=== PATIENT | female | born 1990 | race Caucasian/White ===

== ENCOUNTER → 2022-09-06 11:28 | Outpatient (CLI) | payer OTHER, SELFPAY ==
--- NOTE | ~2022-09-06 | XR_ITS ---
EXAMINATION: XR fl inj knee LT for MR/CT DATE: 09/06/2022 12:52 INDICATION: Left knee pain TECHNIQUE: A time-out was performed to verify the patient's name, date of , and procedure to b e performed. The procedure including the risks, benefits, and alternatives was discussed with the pat ient. Risks discussed included bleeding and infection. The patient understood the risks and agreed to proceed. The skin overlying the lateral side of the left knee joint was prepped and draped in usual sterile fashion. Anesthetic was administered with 1% lidocaine subcutaneously. A 22 G needle was a dvanced under fluoroscopic guidance into the joint. Injection of 0.3 mL of Omnipaque 350 confirmed i ntra-articular position of the needle. Subsequently, injectate consisting of 40 mL of 5:3:2 mixture of sterile saline:Omnipaque 240:1% lidocaine mixed 200:1 with 529 mg/mL Multihance gadolinium contras t was injected with intra-articular administration confirmed by intermittent fluoroscopy. The needle was removed and the entry site was cleaned and dressed. There were no immediate complications. Fluor oscopy exposure time was 0.2 minutes. The total number of images was 12. Total DAP was 0.151 Gycm^2 FINDINGS: Real-time fluoroscopy demonstrates the needle in the left knee joint. IMPRESSION: 1. Successful left knee joint injection of dilute gadolinium contrast mixture for subsequent MRI arth rogram which will be dictated separately. Reviewed, dictated and finalized at location A. IMPRESSION: 1. Successful left knee joint injection of dilute gadolinium contrast mixture f or subsequent MRI arthrogram which will be dictated separately.
--- NOTE | ~2022-09-06 | MR_ITS ---
EXAMINATION: MR knee LT w con DATE: 09/06/2022 13:10 INDICATION: Left knee pain TECHNIQUE: Magnetic resonance imaging (MRI) of the left knee was performed with intra-articular contr ast but without intravenous contrast. Details of the contrast mixture and joint injection have been d ictated separately. Sequences included axial and coronal PD-weighted FSE, axial, sagittal and coronal T1-weighted FS FSE, sagittal T2-weighted FS FSE and sagittal PD-weighted FSE. COMPARISON: None. FINDINGS: Medial compartment: Medial meniscus is normal. Articular cartilage is normal. Lateral compartment: Lateral meniscus is normal. Articular cartilage is normal. Patellofemoral compartment: Partial-thickness chondral fissuring involving up to 50% the cartilage thickness at the central aspec t of the medial and of the lateral patellar facets. Full/near full-thickness sagittal oriented chondr al fissure measuring 4 mm craniocaudally at the central aspect of the trochlear groove with prominent underlying subarticular edema-like signal change. Ligaments and tendons: Anterior and posterior cruciate ligaments are normal. The medial collateral ligament and fibular nicki ateral ligament complex are normal. The extensor mechanism is normal with a couple thin bands of justin c angle artifact extending across the mid and distal patellar tendon. The visualized medial and later al hamstring tendons as well as the iliotibial band are normal. Osseous/other: Aside from the subarticular marrow edema at the trochlea there is normal marrow signal. No fracture o r pathologic marrow replacing process. IMPRESSION: 1. 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 2. Normal stabilizing ligaments and normal menisci and cartilage in the medial and lateral compartmen ts. Reviewed, dictated and finalized at location A. IMPRESSION: 1. 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 2. Normal stabilizing ligaments and normal menisci and cartilage in the medial and lateral compartments.
== END ==
PROVIDERS: PCP Physician Assistant; Visit Provider Orthopaedic Surgery
DX: M17.12 Unilateral primary osteoarthritis, left knee (principal)
CPT/HCPCS: 20610; 73722; 77002; A9577; Q9967

== ENCOUNTER 2024-05-06 12:47 | Outpatient (CLI) | payer OTHER, SELFPAY ==
--- NOTE | ~2024-05-06 | US_ITS ---
EXAMINATION TYPE: US breast LT limited COMPARISON: NONE REASON FOR STUDY: AXILLARY TAIL TECHNIQUE: Targeted sonographic evaluation of the left axillary tail was performed. INTERPRETATION: No significant mass lesion identified. No fluid collection or cyst seen. No significant abnormalities seen. IMPRESSION: Negative BI-RADS CATEGORY: BI-RADS 1: Normal Reviewed, dictated and finalized at [facility]. TOR CRANE ENGINEER
== END 2024-05-06 12:48 | disposition home or self-care (01) ==
PROVIDERS: PCP Physician Assistant; Visit Provider Obstetrics & Gynecology
DX: N63.32 Unspecified lump in axillary tail of the left breast (principal)
CPT/HCPCS: 76642

== ENCOUNTER 2024-09-19 07:53 | Outpatient (CLI) | payer OTHER, SELFPAY ==
--- NOTE | ~2024-09-19 | MMUS_ITS ---
EXAMINATION: US breast LT complete, MM diagnostic peter LT w song HISTORY: Palpable lump left upper outer breast TECHNIQUE: Additional 3-D tomosynthesis images of the left breast were performed and synthetic 2-D im ages were generated. CAD analysis was submitted and interpreted. High resolution complete left breast ultrasound was performed. COMPARISON: Ultrasound dated 05/06/2024 BREAST PARENCHYMAL COMPOSITION: Dense: The breasts are extremely dense, which lowers the sensitivity of mammography. FINDINGS: MAMMOGRAPHIC FINDINGS: There are no suspicious masses, calcifications or architectural distortion in the left breast to sugg est malignancy. There are benign appearing lymph nodes in the left axilla. ULTRASOUND: Complete US of all 4 quadrants of the left breast/s and retroareolar region was reviewed. At 6:00, 6 cm from the nipple there is a 3 mm cyst. No suspicious masses in the left breast to suggest malignanc y. IMPRESSION: 1. No evidence for malignancy in the left breast. 2. Routine yearly screening mammogram and regular clinical breast examination are recommended. BI-RADS Category 2: Benign finding(s). Reviewed, dictated and finalized at location A. IMPRESSION: 1. No evidence for malignancy in the left breast. 2. Routine yearly screening mammogram and regular clinical breast examination a re recommended. BI-RADS Category 2: Benign finding(s).
== END 2024-09-19 07:54 | disposition home or self-care (01) ==
PROVIDERS: PCP Physician Assistant; Visit Provider Student in an Organized Health Care Education/Training Program
DX: N63.21 Unspecified lump in the left breast, upper outer quadrant (principal)
CPT/HCPCS: 76641; 77061; 77065; G0279

== ENCOUNTER 2024-12-24 17:31 | Emergency (ER) | payer OTHER, SELFPAY ==
--- NOTE | ~2024-12-24 | XR_ITS ---
XR knee LT 3V Ordering provider: Kike Paredes APRN History: . LT knee pain/swelling after exercising yesterday . Comparison: None. FINDINGS: BONES: No acute fracture or dislocation. JOINT SPACES: Normal. SOFT TISSUES: Normal. IMPRESSION: No acute osseous abnormality left knee. Reviewed, dictated and finalized at location A.
--- OUTSIDE RECORDS SUMMARY | 2024-12-24 17:34 | XMS_ITS | Clinical Summary ---
Author Organization [facility] Address [address] [place] [address] Care Team Providers Care Golf Sales Associate Name Role Phone Carl Márquez DO Primary Care Provider [phone] Source Comments [facility],non-owned Affiliates and Associated Physician Practices is amultiple site organization consisting of ambulatory clinics and hospital sitesin [place], [place], [place] and [place]. This disclosure is being madepursuant to the Care Everywhere program and may not contain all information available regarding this patient. 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 Gender Identity Not on file Sexual Orientation Not on file Plan of Treatment Health Maintenance Due Date Last Done Comments HIV SCREENING 2006 HEPATITIS C SCREENING 04/26/2009 HEPATITIS B VACCINE (1 of 3 - 19+ 3-dose series) 2010 COVID-19 VACCINE ( - 2023-2 5 season) 2024 DEPRESSION SCREENING 06/18/2024 INFLUENZA VACCINE (Season Ended) 2025 DTAP/TDAP/TD VACCINES (2 - T d or Tdap) 07/11/2026 07/11/2016 ZOSTER VACCINE (1 of 2) 2041 HIB VACCINE Aged Out No longer eligi ble based on patient's age to complete this topic HPV VACCINE Aged Out No longer eligi ble based on patient's age to complete this topic MENINGOCOCCAL (Group B) VACC INE SHARED DECISION-MAKING Aged Out No longer eligibl e based on patient's age to complete this topic MENINGOCOCCAL GROUPS A/C/Y/W VACCINE Aged Out No longer eligible b ased on patient's age to complete this topic PNEUMOCOCCAL VACCINE Aged Out No long er eligible based on patient's age to complete this topic Insurance [facility] Address: [address] [address] [place] [address] Care Teams Golf Sales Associate Relationship Specialty Start Date End Date Carl Márquez DO PCP - General Internal Medicine 07/11/16
--- OUTSIDE RECORDS SUMMARY | 2024-12-24 17:34 | XMS_ITS | Clinical Summary ---
Author Organization [facility] Address [address] [place] [id number] Care Team Providers Care Profiling Machine Set Up Operator Name Role Phone Angelita Byrnes Primary Care Provider Allergies No known active allergies Medications ondansetron 4 MG disintegrating tablet Take 1 tablet (4 mg total) by mouth every 8 (eight) hours as needed for Nausea. 20 tablet Active Social History Tobacco Use Types Packs/Day Years Used Date Smoking Tobacco: Never Smokeless Tobacco: Never Alcohol Use Standard Drinks/Week Comments Never 0 (1 standard drink = 0.6 oz pur e alcohol) Comments No Sex and Gender Information Value Date Recorded Sex Assigned at Not on file Legal Sex Female 7:36 PM CDT Gender Identity Not on file Sexual Orientation Not on file Last Filed Vital Signs Vital Sign Reading Time Taken Comments Blood Pressure 114/72 11/15/2021 6:59 PM CDT Pulse 74 11/15/2021 6:59 PM CDT Temperature 36.4 C (97.6 F) 11/15/2021 3:34 PM CDT Respiratory Rate 16 11/15/2021 6:59 PM CDT Oxygen Saturation 100% 11/15/2021 6:59 PM CDT Inhaled Oxygen Concentration - - Weight 68 kg (150 lb) 11/15/2021 3:34 PM CDT Height 172.7 cm (5' 8) 11/15/2021 3:34 PM CDT Body Mass Index 22.81 11/15/2021 3:34 PM CDT Plan of Treatment Health Maintenance Due Date Last Done Comments Cervical Cancer Screening Pa p Smear (Age 30 to 64) Every 3 Years 1991 Annual Physical 1994 Hepatitis C 2009 Hepatitis B Vaccines (1 of 3 - 19+ 3-dose series) 2010 Cervical Cancer Screening Mushtaq yi with HPV Testing (Age 30 to 64) Every 5 Years 2021 Cervical Cancer Screening wi th HPV 2021 COVID-19 Vaccine (3 - 2023-2 5 season) 2024 02/02/2021, 01/12/2021 DTaP, Tdap and Td Vaccines ( 2 - Td or Tdap) 07/11/2026 07/11/2016 HPV Vaccines Aged Out No longer eligi ble based on patient's age to complete this topic Meningococcal B Vaccine Aged Out No l onger eligible based on patient's age to complete this topic Meningococcal Vaccine Aged Out No rafal mattie eligible based on patient's age to complete this topic Pneumococcal Vaccine: Pediatrics (0 to 5 Years) and At-Risk Patients (6 to 49 Years) Aged Out No longer eligible b ased on patient's age to complete this topic RSV Immunizations Under 20 Months Aged Out No longer eligible b ased on patient's age to complete this topic Insurance Care Teams Profiling Machine Set Up Operator Relationship Specialty Start Date End Date Angelita Byrnes PA PCP - General PHYSICIAN BIOSTATISTICS DIRECTOR 11/15/21
--- OUTSIDE RECORDS SUMMARY | 2024-12-24 17:34 | XMS_ITS | Patient Health Record ---
Author Organization [facility] Address [address] [place], [place] [id number] Care Team Providers Care Silverware Buffer Name Role Phone JASSI BETH Unavailable [phone] Angelita Byrnes Unavailable Unavailable Reason For Referral No Information Plan Of Treatment No Information Insurance Providers Payer Name Payer Address Payer Phone Subscriber Number Group Number Insured Name Patient Relationship to Insured Coverage Start Date Coverage End Date All [employer] [address] [address] [place], [place] [id number] ALFREDITO ABDI Spouse - patient is the spouse of the insured [employer] [address] [address] [place] [address] [id number] ALFREDITO ABDI Spouse - patient is the spouse of the insured
--- OUTSIDE RECORDS SUMMARY | 2024-12-24 17:34 | XMS_ITS | Data Portability ---
Author Organization [facility] [place] [facility] Address [address] [place] [address] Care Team Providers Care Nurse Gynecology Name Role Phone TERESO FIERRO Primary Care Provider Unavailab le Assessment Encounter Date Assessment Date Assessment LastModified by Organization Details LastModified Time 05/20/2024 05/20/2024 discussed sometimes has axilla discomfort left side. gyne ordered u/s axilla tail that was normal. discussed possible CT axilla if pain returns. [email or web address] Not available 05/20/2024 14:18:54 Plan of Treatment Reminders Order Date Submit Date Provider Last Modified By Organization Details Last Modified Time Details Appointments None recorded. Lab influenza virus A + B + SARS-CoV-2 (COVID19) Ag panel, rapid IA, upper respirator y specimen 2024 025 [email or web address] In-Office Order, Internal Use Only DO Not Attach Compendium DO Not Attach Compendium, Do Not Delete/merge, [id number] 13:52:27 rapid strep group A, throat 2024 025 [email or web address] In-Office Order, Internal Use Only DO Not Attach Compendium DO Not Attach Compendium, Do Not Delete/merge, [id number] 13:58:29 Referral None recorded. Procedures None recorded. Surgeries None recorded. Imaging None recorded. Medication Orders cefdinir 300 mg capsule 2024 025 [facility] #[id number], [address] [place] [address], [id number], 5 13:53:02 prednisone 50 mg tablet 2024 025 [facility] #68370, [address] [place] [address], [id number], 5 13:53:01 sertraline 25 mg tablet 2023 024 [facility] #18201, [address] [place] [address], [id number], 4 14:20:30 bupropion HCl XL 300 mg 24 hr tablet, extended release 2023 024 [email or web address] #85321, [address] [place] [address], [id number], 5 13:07:07 Medrol (Brandan) 4 mg tablets in a dose pack 2023 024 [facility] #65439, [address] [place] [address], [id number], 4 21:17:02 codeine 10 mg-guaifen esin 100 mg/5 mL oral liquid 2023 024 [facility] #27260, [address] [place] [address], [id number], 4 21:17:00 amoxicilli n 875 mg-potassi um clavulanat e 125 mg tablet 2023 024 [facility] #27790, [address] [place] [address], [id number], 4 21:17:00 Patient TargetsNo targets recorded. Patient InstructionsNo instructions recorded. Reason for Referral None Reported. Results Created Date Observation Date Name Description Value Unit Range Abnormal Flag Note LastModifiedBy Organization Detail LastModifiedTime 02/19/20 24 02/20/2024 LIPID PANEL W/ CHOL/ HDL RATIO cholesterol, total 195 mg/dL 100-19 9 Not Available [facility] ([facility]) [address] [facility], [place], [address], 02/20/2024 04:36:17 02/19/20 24 02/20/2024 LIPID PANEL W/ CHOL/ HDL RATIO triglyceride s 73 mg/dL 0-149 Not Available [facility] ([facility]) [address] [facility], [place], [address], 02/20/2024 04:36:17 02/19/20 24 02/20/2024 LIPID PANEL W/ CHOL/ HDL RATIO HDL cholesterol 87 mg/dL >39 Not Available [facility] ([facility]) [address] [facility], [place], [address], 02/20/2024 04:36:17 02/19/20 24 02/20/2024 LIPID PANEL W/ CHOL/ HDL RATIO VLDL cholesterol lisa 13 mg/dL 5-40 Not Available [facility] ([facility]) [address] [facility], [place], [address], 02/20/2024 04:36:17 02/19/20 24 02/20/2024 LIPID PANEL W/ CHOL/ HDL RATIO LDL chol calc (rust) 95 mg/dL 0-99 Not Available [facility] ([facility]) [address] [facility], [place], [address], 02/20/2024 04:36:17 02/19/20 24 02/20/2024 LIPID PANEL W/ CHOL/ HDL RATIO T. chol/HDL ratio 2.2 ratio 0.0-4. 4 T. Chol/ HDL Ratio Men Women 1/2 Avg.R isk 3.4 3.3 Avg.R isk 5.0 4.4 2X Avg.R isk 9.6 7.1 3X Avg.R isk 23.4 11.0 Not Available [facility] ([facility]) [address] [facility], [place], [address], 02/20/2024 04:36:17 02/19/20 24 02/20/2024 TSH+F REE T4 TSH 2.110 uIU/m L 0.450- 4.500 Not Available [facility] ([facility]) [address] [facility] [place], [address], 02/20/2024 04:36:17 02/19/20 24 02/20/2024 TSH+F REE T4 T4,free(dire ct) 1.19 NG/dL 0.82-1 .77 Not Available [facility] ([facility]) [address] [facility] [place], [address], 02/20/2024 04:36:17 02/19/20 24 02/20/2024 COMP. METAB OLIC PANEL (14) glucose 87 mg/dL 70-99 Not Available [facility] ([facility]) [address] [place], [address], 02/20/2024 04:36:18 02/19/20 24 02/20/2024 COMP. METAB OLIC PANEL (14) BUN 9 mg/dL 6-20 Not Available [facility] ([facility]) [address] [place], [address], 02/20/2024 04:36:18 02/19/20 24 02/20/2024 COMP. METAB OLIC PANEL (14) creatinine 0.82 mg/dL 0.57-1 .00 Not Available [facility] ([facility]) [address] [facility] [place], [address], 02/20/2024 04:36:18 02/19/20 24 02/20/2024 COMP. METAB OLIC PANEL (14) eGFR 97 mL/mi n/1.7 3 >59 Not Available [facility] ([facility]) [address] [place], [address], 02/20/2024 04:36:18 02/19/20 24 02/20/2024 COMP. METAB OLIC PANEL (14) BUN/creatini ne ratio 11 9-23 Not Available [facility] ([facility]) [address] [facility] [place], [address], 02/20/2024 04:36:18 02/19/20 24 02/20/2024 COMP. METAB OLIC PANEL (14) sodium 138 mmol/ L 134-14 4 Not Available [facility] ([facility]) [address] [facility] [place], [address], 02/20/2024 04:36:18 02/19/20 24 02/20/2024 COMP. METAB OLIC PANEL (14) potassium 4.4 mmol/ L 3.5-5. 2 Not Available [facility] ([facility]) [address] [facility], [place], [address], 02/20/2024 04:36:18 02/19/20 24 02/20/2024 COMP. METAB OLIC PANEL (14) chloride 103 mmol/ L 96-106 Not Available [facility] ([facility]) [address] [place], [address], 02/20/2024 04:36:18 02/19/20 24 02/20/2024 COMP. METAB OLIC PANEL (14) carbon dioxide, total 23 mmol/ L 20-29 Not Available [facility] ([facility]) [address] [place], [address], 02/20/2024 04:36:18 02/19/20 24 02/20/2024 COMP. METAB OLIC PANEL (14) calcium 9.2 mg/dL 8.7-10 .2 Not Available [facility] ([facility]) [address] [place], [address], 02/20/2024 04:36:18 02/19/20 24 02/20/2024 COMP. METAB OLIC PANEL (14) protein, total 6.9 g/dL 6.0-8. 5 Not Available [facility] ([facility]) [address] [place], [address], 02/20/2024 04:36:18 02/19/20 24 02/20/2024 COMP. METAB OLIC PANEL (14) albumin 4.5 g/dL 3.9-4. 9 Not Available [facility] ([facility]) [address] [place], [address], 02/20/2024 04:36:18 02/19/20 24 02/20/2024 COMP. METAB OLIC PANEL (14) globulin, total 2.4 g/dL 1.5-4. 5 Not Available [facility] ([facility]) [address] [place], [address], 02/20/2024 04:36:18 02/19/20 24 02/20/2024 COMP. METAB OLIC PANEL (14) bilirubin, total 0.3 mg/dL 0.0-1. 2 Not Available [facility] ([facility]) [address] [place], [address], 02/20/2024 04:36:18 02/19/20 24 02/20/2024 COMP. METAB OLIC PANEL (14) alkaline phosphatase 68 IU/L 44-121 Not Available [facility] ([facility]) [address] [place], [address], 02/20/2024 04:36:18 02/19/20 24 02/20/2024 COMP. METAB OLIC PANEL (14) AST (SGOT) 17 IU/L 0-40 Not Available [facility] ([facility]) [address] [place], [address], 02/20/2024 04:36:18 02/19/20 24 02/20/2024 COMP. METAB OLIC PANEL (14) ALT (SGPT) 16 IU/L 0-32 Not Available [facility] ([facility]) [address] [facility], [place], [address], 02/20/2024 04:36:18 02/19/2002/20/2024 VITAM IN B12 AND FOLAT E vitamin B12 482 pg/mL 232-12 45 Not Available [facility] ([facility]) [address] [facility], [place], [address], 02/20/2024 04:36:19 02/19/2002/20/2024 VITAM IN B12 AND FOLAT E folate (folic acid), serum 11.9 NG/mL >3.0 A serum folat e aleida ntrat ion of less than 3.1 ng/mL is consi dered to repre sent clini lisa defic iency . Not Available [facility] ([facility]) [address] [facility], [place], [address], 02/20/2024 04:36:19 02/19/2002/20/2024 HEMOG LOBIN A1C hemoglobin A1C 5.4 % 4.8-5. 6 Predi abete s: 5.7 - 6.4 Diabe gabby: >6.4 Glyce hannah contr ol for adult s with diabe gabby: <7.0 Not Available [facility] ([facility]) [address] [facility], [place], [address], 02/20/2024 04:36:19 02/19/2002/19/2024 CBC WITH DIFFE RENTI AL/PL ATELE T WBC 5.6 x10e3 /uL 3.4-10 .8 Not Available [facility] ([facility]) [address] [facility], [place], [address], 02/20/2024 04:36:20 02/19/2002/19/2024 CBC WITH DIFFE RENTI AL/PL ATELE T RBC 4.72 x10e6 /uL 3.77-5 .28 Not Available [facility] ([facility]) [address] [place], [address], 02/20/2024 04:36:20 02/19/20 24 02/19/2024 CBC WITH DIFFE RENTI AL/PL ATELE T hemoglobin 13.7 g/dL 11.1-1 5.9 Not Available [facility] ([facility]) [address] [facility], [place], [address], 02/20/2024 04:36:20 02/19/20 24 02/19/2024 CBC WITH DIFFE RENTI AL/PL ATELE T hematocrit 42.1 % 34.0-4 6.6 Not Available [facility] ([facility]) [address] [facility], [place], [address], 02/20/2024 04:36:20 02/19/20 24 02/19/2024 CBC WITH DIFFE RENTI AL/PL ATELE T MCV 89 fL 79-97 Not Available [facility] ([facility]) [address] [facility], [place], [address], 02/20/2024 04:36:20 02/19/20 24 02/19/2024 CBC WITH DIFFE RENTI AL/PL ATELE T MCH 29.0 pg 26.6-3 3.0 Not Available [facility] ([facility]) [address] [place], [address], 02/20/2024 04:36:20 02/19/20 24 02/19/2024 CBC WITH DIFFE RENTI AL/PL ATELE T MCHC 32.5 g/dL 31.5-3 5.7 Not Available [facility] ([facility]) [address] [place], [address], 02/20/2024 04:36:20 02/19/20 24 02/19/2024 CBC WITH DIFFE RENTI AL/PL ATELE T RDW 11.9 % 11.7-1 5.4 Not Available [facility] ([facility]) [address] [place], [address], 02/20/2024 04:36:20 02/19/20 24 02/19/2024 CBC WITH DIFFE RENTI AL/PL ATELE T platelets 335 x10e3 /uL 150-45 0 Not Available [facility] ([facility]) [address] [facility], [place], [address], 02/20/2024 04:36:20 02/19/20 24 02/19/2024 CBC WITH DIFFE RENTI AL/PL ATELE T neutrophils 45 % notest ab. Not Available [facility] ([facility]) [address] [facility], [place], [address], 02/20/2024 04:36:20 02/19/20 24 02/19/2024 CBC WITH DIFFE RENTI AL/PL ATELE T lymphs 43 % notest ab. Not Available [facility] ([facility]) [address] [facility], [place], [address], 02/20/2024 04:36:20 02/19/20 24 02/19/2024 CBC WITH DIFFE RENTI AL/PL ATELE T monocytes 7 % notest ab. Not Available [facility] ([facility]) [address] [facility], [place], [address], 02/20/2024 04:36:20 02/19/20 24 02/19/2024 CBC WITH DIFFE RENTI AL/PL ATELE T eos 4 % notest ab. Not Available [facility] ([facility]) [address] [facility], [place], [address], 02/20/2024 04:36:20 02/19/20 24 02/19/2024 CBC WITH DIFFE RENTI AL/PL ATELE T basos 1 % notest ab. Not Available [facility] ([facility]) [address] [facility], [place], [address], 02/20/2024 04:36:20 02/19/20 24 02/19/2024 CBC WITH DIFFE RENTI AL/PL ATELE T neutrophils (absolute) 2.5 x10e3 /uL 1.4-7. 0 Not Available [facility] ([facility]) [address] [facility], [place], [address], 02/20/2024 04:36:20 02/19/20 24 02/19/2024 CBC WITH DIFFE RENTI AL/PL ATELE T lymphs (absolute) 2.4 x10e3 /uL 0.7-3. 1 Not Available [facility] ([facility]) [address] [facility], [place], [address], 02/20/2024 04:36:20 02/19/20 24 02/19/2024 CBC WITH DIFFE RENTI AL/PL ATELE T monocytes(ab solute) 0.4 x10e3 /uL 0.1-0. 9 Not Available [facility] ([facility]) [address] [facility], [place], [address], 02/20/2024 04:36:20 02/19/20 24 02/19/2024 CBC WITH DIFFE RENTI AL/PL ATELE T eos (absolute) 0.2 x10e3 /uL 0.0-0. 4 Not Available [facility] ([facility]) [address] [facility], [place], [address], 02/20/2024 04:36:20 02/19/20 24 02/19/2024 CBC WITH DIFFE RENTI AL/PL ATELE T baso (absolute) 0.1 x10e3 /uL 0.0-0. 2 Not Available [facility] ([facility]) [address] [place], [address], 02/20/2024 04:36:20 02/19/20 24 02/19/2024 CBC WITH DIFFE RENTI AL/PL ATELE T immature granulocytes 0 % notest ab. Not Available [facility] ([facility]) [address] [place], [address], 02/20/2024 04:36:20 02/19/20 24 02/19/2024 CBC WITH DIFFE RENTI AL/PL ATELE T immature grans (abs) 0.0 x10e3 /uL 0.0-0. 1 Not Available [facility] ([facility]) [address] [facility], [place], [address], 02/20/2024 04:36:20 08/19/19 25 08/18/2024 rapid strep group A, throa t Strep negati ve Not Available In-Office Order Internal Use Only DO Not Attach Compendium DO Not Attach Compendium, Do Not Delete/merge, 08/18/2024 13:58:24 08/19/19 25 08/18/2024 influ dwayne virus A + B + SARS- CoV-2 (COVI D19) Ag panel , rapid IA, upper respi rator y speci men Flu A positi ve Not Available In-Office Order Internal Use Only DO Not Attach Compendium DO Not Attach Compendium, Do Not Delete/merge, 08/18/2024 13:52:11 08/19/19 25 08/18/2024 influ dwayne virus A + B + SARS- CoV-2 (COVI D19) Ag panel , rapid IA, upper respi rator y speci men Flu B negati ve Not Available In-Office Order Internal Use Only DO Not Attach Compendium DO Not Attach Compendium, Do Not Delete/merge, 08/18/2024 13:52:11 08/19/19 25 08/18/2024 influ dwayne virus A + B + SARS- CoV-2 (COVI D19) Ag panel , rapid IA, upper respi rator y speci men Rapid SARS CoV 2 Ag, QL IA, respiratory specimen negati ve Not Available In-Office Order Internal Use Only DO Not Attach Compendium DO Not Attach Compendium, Do Not Delete/merge, 08/18/2024 13:52:11 05/06/20 24 05/06/2024 robel BRUNO No observ ation record ed. [email or web address] [facility] [address], [place], [address], 05/20/2024 14:08:17 09/20/19 25 09/19/2024 MAMMO , diagn ostic , digit al, unila teral No observ ation record ed. [email or web address] [facility] [address], [place], [address], 09/19/2024 13:32:17 Result Notes None recorded. Problems Name Problem SNOMED Code Status Onset Date Resolution Date Notes Provider Name and Address Organization Details Recorded Time Generalized anxiety disorder 43060120 Active 2023 ALICE Hopkins Attn: Lolita hogan,[address] [place], [address], [facility] 4 14:04:52 Mild depression 439596618 Active 2023 ALICE Hopkins Attn: Lolita hogan,[address] [place], [address], [facility] 4 14:04:53 Long-term drug therapy Active 2023 ALICE Hopkins Attn: Lolita g,[address] [place], [address], [facility] 4 14:04:54 Body mass index 20-24 - normal 827920868 Active 2023 ALICE Hopkins Attn: Lolita g,[address] [place], [address], [facility] 4 19:21:48 Problem Notes None recorded. Medical Equipment None Reported. Allergies No known drug allergies Medications Name Sig Start Date Stop Date Status Note LastModified by Organization Details LastModified Time cyclobenzap rine 10 mg tablet TAKE 1 TABLET BY MOUTH THREE TIMES DAILY NEEDED 09/19 completed Not Available Not Available Not Available sulfamethox azole 800 mg-trimetho prim 160 mg tablet TAKE 1 TABLET BY MOUTH EVERY 12 HOURS 09/19 completed Not Available Not Available Not Available prednisone 50 mg tablet TAKE 1 TABLET BY MOUTH EVERY DAY FOR 5 DAYS active Not Available Not Available No t Available sertraline 25 mg tablet Take 1 tablet(s) every day by oral route. 2023 active Not Available Not Available Not Avai lable codeine 10 mg-guaifene sin 100 mg/5 mL oral liquid TAKE 10 ML BY MOUTH EVERY 4 TO 6 HOURS NEEDED 02/17 completed Not Available Not Available Not Available mupirocin 2 % topical ointment APPLY A SMALL AMOUNT TO THE AFFECTED AREA OF GROIN THREE TIMES DAILY 09/19 completed Not Available Not Available Not Available methylpredn isolone 4 mg tablets in a dose pack FOLLOW PACKAGE DIRECTION S active Not Available Not Available No t Available cefdinir 300 mg capsule TAKE 1 CAPSULE BY MOUTH EVERY 12 HOURS active Not Available Not Available No t Available amoxicillin 875 mg-potassiu m clavulanate 125 mg tablet TAKE 1 TABLET BY MOUTH EVERY 12 HOURS 02/17 completed Not Available Not Available Not Available bupropion HCl XL 300 mg 24 hr tablet, extended release TAKE 1 TABLET BY MOUTH EVERY DAY active Not Available Not Available No t Available Vitals Date Recorded Body height Body mass index (BMI) Body weight Oxygen saturation Oxygen saturation in Arterial blood by Pulse oximetry Heart rate Respiratory rate Systolic And Diastolic Provider Name and Address Organization Details Last Updated DateTime 5 172.72 cm 22.8 kg/m2 03165.8 6 g 99 % 99 % 90 /min 20 /min 118/82 mm[Hg] Eagle Hartley MA [facility] 5 13:09:42 Date Recorded Body height Body mass index (BMI) Body weight Oxygen saturation Oxygen saturation in Arterial blood by Pulse oximetry Heart rate Provider Name and Address Organization Details Last Updated DateTime 4 172.72 cm 23 kg/m2 67305.4 5 g 98 % 98 % 78 /min Eagle Hartley MA [facility] 4 15:52:21 Date Recorded Systolic And Diastolic Systolic And Diastolic Provider Name and Address Organization Details Last Updated DateTime 05/20/2024 110/80 mm[Hg] 100/80 mm[Hg] ALICE Hopkins Attn: [employer] [place], [address], [facility] 05/20/2024 14:17:50 Date Recorded Body height Body mass index (BMI) Body weight Respiratory rate Oxygen saturation Oxygen saturation in Arterial blood by Pulse oximetry Heart rate Systolic And Diastolic Provider Name and Address Organization Details Last Updated DateTime 172.72 cm 23.6 kg/m2 90723.8 2 g 18 /min 99 % 99 % 79 /min 122/82 mm[Hg] Eagle Hartley MA [facility] 14:00:28 Social History Question Answer Notes LastModified by Organizat ion Details LastModified Time Tobacco Smoking Status Never Smoker Eagle Hartley MA null, [facility] 08/18/2024 13:07:33 Do You Have An Advance Directive? No Information not available 05/20/2024 Are You Blind Or Do You Have Difficulty Seeing? No Glasses/c ontacts Information not available 05/20/2024 What Is Your Level Of Caffeine Consumption? Moderate Information not available 05/20/2024 In The 14 Days Before Symptom Onset, Have You Had Close Contact With A Laboratory-confir med COVID-19 While That Case Was Ill? No Information not available 05/20/2024 In The 14 Days Before Symptom Onset, Have You Had Close Contact With A Person Who Is Under Investigation For COVID-19 While That Person Was Ill? No Information not available 05/20/2024 Have You Been To An Area Known To Be High Risk For COVID-19? No Information not available 05/20/2024 Are You Deaf Or Do You Have Serious Difficulty Hearing? No Information not available 05/20/2024 What Type Of Diet Are You Following? REGULAR Information not available 05/20/2024 Are There Any Guns Present In Your Home? No Information not available 05/20/2024 What Was The Date Of Your Most Recent Tobacco Screening? 08/18/2024 Information not available 08/18/2024 Do You Use Your Seat Belt Or Car Seat Routinely? Yes Information not available 05/20/2024 Do You Have Smoke And Carbon Monoxide Detectors In Your Home? Yes Information not available 05/20/2024 Do You Use Sunscreen Routinely? Yes Information not available 05/20/2024 Has Tobacco Cessation Counseling Been Provided? No Information not available 08/18/2024 Sex: Unknown Functional Status Question Answer Note LastModified by Organizat ion Details LastModified Time Do you use any illicit or recreational drugs? No Information not available 05/20/2024 Do you or have you ever used any other forms of tobacco or nicotine? No Information not available 08/18/2024 Are you currently employed? Yes Information not available 05/20/2024 Are you able to care for yourself? Yes Information n ot available 05/20/2024 What is your exercise level? Occasional Information not available 05/20/2024 Mental Status Question Answer Note LastModified by Organization D etails LastModified Time Do you feel stressed (tense, restless, nervous, or anxious, or unable to sleep at night)? [id number] Information not available 05/20/2024 Family History Nothing Reported. Medical History No medical history recorded. Gynecological History Statement/Question Response Menses Monthly Y Flow Moderate Date of LMP 08/11/2024 LMP Approximate Obstetrics History GPAL:G 1 P 1 0 0 1 Type Value Multiple Births 0 Full Term 1 Induced 0 Spontaneous 0 Premature 0 Living 1 Total 1 Past Encounters Encounter ID Performer Location Encounter Start Date Encounter Closed Date Diagnosis/Indication Diagnosis SNOMED-CT Code Diagnosis ICD10 Code Diagnosis Note [id number] Mohit Will MD [facility] [employer] [address] [place] [address] 09/20/2023 15:34:47 09/20/2023 16:20:49 Acute bronchitis 64570763 J20.9 start augmentin 875mg bid course. continue otc medication s of antihistam ine/mucine x Wheezing 48533891 R06.2 start Medrol dose pack for wheezing and brochitis Cough 99390416 R05.9 Rx for codeine/gu aifenesin syrup as directed [id number] Mohit Will MD [facility] [employer] [address] [place] [address] [place] [address] 05/20/2024 13:48:13 05/20/2024 14:23:06 Adult health examination 964242760 Z00.00 Annual wellness exam completed Generalize d anxiety disorder 04547988 F41.1 Stable on sertraline 25 mg daily and refill given Mild depression 99690839 3 F32.A Refill on bupropion XL 300 mg daily. Stable without any complaints or concerns Long-term drug therapy 094689643 Z79.899 All labs are up-to-date and reviewed Body mass index 20-24 - normal 405654183 Z68.23 BMI is 23.6 [id number] Mohit Will MD [facility] [place] [address] [facility] [address] [place] [address] 08/18/2024 12:33:18 08/18/2024 13:55:45 Body mass index 20-24 - normal 263084051 Z68.23 BMI is 23.6 Pain of ear 558645563 H9 2.09 Treatment as above Acute bila teral otitis media 163932545 H66.93 Start cefdinir 300 mg twice daily for 7 days and prednisone 50 mg daily for 5 days Nasal congestion 2404754 0 R09.81 Over-the-c ounter decongesta nt as well as nasal steroid spray can be used for nasal congestion . Patient is also positive for influenza A. Health Concerns Section Related Observation LastModified by Organization Detai ls LastModified Time None Recorded Concern Status LastModified by Organization Details LastModified Time None Recorded Advance Directives Directive N: Payers Insurance Date Sequence Insurance Name Policy Number Policy Mckeon Covered Member ID Mckeon Member ID Guarantor Name 09/15/2024 1 [facility] [id number] Bacilio Alejandro [id number] Valentina Alejandro 10/17/2023 1 *SELF PAY* Ka yla Alejandro 09/20/2023 1 [facility] Valentina Alejandro [id number] Valentina Alejandro 09/20/2023 1 [facility] (MEDICARE REPLACEMENT/A DVANTAGE - HMO) Valentina Alejandro [id number] Valentina Alejandro 10/08/2023 1 [facility] [id number] Valentina Alejandro [id number] Valentina Allen Notes Date Note Type Note Provider Name and Address Organization Details Recorded Time 09/20/2023 text/html Upper Respirator y SymptomsReported bypatient.[facility] Quality:productive cough;congested;wheezy cough Severity:moderate Duration:1 week Onset/Timing:sudden Context:no sick contacts; no foreign travel; non-smoker Modifying Factors:OTC medication Associated Symptoms:yellow sputum;wheezing ALICE Hopkins Attn: Accounting,[address] [place], [address], [facility] 10/01/2023 00:44:03 05/20/2024 text/html Anxiety/Depressi onRepo rted bypatient.Notes:Nona horn is stable on Wellbutrin XL 300 mg daily and sertraline 25 mg daily. She is needing some refills but overall feels relatively stable on this medication regimen with no acute complaints. ALICE Hopkins Attn: Accounting[address] [place], [address], [facility] 06/08/2024 19:21:59 08/18/2024 text/html EaracheReported bypatient.Location:[facility] ateral Quality:aching; throbbing; dull Severity:worsening; continuous Timing:worse Context:sick contact;recent air travel ALICE Hopkins Attn: Accounting,[address] [place], [address], [facility] 09/13/2024 19:56:16 OBGyn Episode No OBEpisode recorded.
--- OUTSIDE RECORDS SUMMARY | 2024-12-24 17:34 | XMS_ITS | Data Portability ---
Author Organization [place] - [facility] [employer], Main Office Address [address] [place] [address] Care Team Providers Care Associate Professor Of Criminal Justice Name Role Phone TERESO FIERRO Primary Care Provider TERESO FIERRO Referring Provider Assessment No assessment recorded. Plan of Treatment Reminders Order Date Submit Date Provider Last Modified By Organization Details Last Modified Time Details Appointments None recorded. Lab TSH + free T4, serum 2022 023 [email or web address] 4 Not available 3 15:55:31 CMP, serum or plasma 2022 023 [email or web address] 4 Not available 3 15:55:31 CBC w/ auto diff 2022 023 [email or web address] 4 Not available 3 15:55:31 lipid panel, serum 2022 023 [email or web address] 4 Not available 3 15:55:30 HbA1c (hemoglobin A1c), blood 2022 023 [email or web address] 4 Not available 3 15:55:30 Referral None recorded. Procedures None recorded. Surgeries None recorded. Imaging None recorded. Medication Orders bupropion HCl XL 300 mg 24 hr tablet, extended release 2022 023 [facility][id number], [address] [place], [place], [id number], 3 15:55:26 sertraline 25 mg tablet 2022 023 [facility] #90554, [address] [place] [address], [id number], 3 15:55:28 amoxicillin 875 mg-potassiu m clavulanate 125 mg tablet 2022 023 [place] [address] 4 [facility] #77722, [address] [place] [address], [id number], 3 12:24:20 albuterol sulfate HFA 90 mcg/actuati on aerosol inhaler 2022 023 [place] [address] 4 [facility] #51826, [address] [place] [address], [id number], 3 14:07:28 Medrol (Brandan) 4 mg tablets in a dose pack 2022 023 [place] [address] 4 [facility] #68394, [address] [place] [address], [id number], 3 11:52:44 Patient TargetsNo targets recorded. Patient InstructionsNo instructions recorded. Reason for Referral None Reported. Results Created Date Observation Date Name Description Value Unit Range Abnormal Flag Note LastModifiedBy Organization Detail LastModifiedTime 11/29/19 22 11/15/2021 CT, abdom en + pelvi s, w/ contr ast No observ ation record ed. [id number] [facility] [place], [address], 08/16/2022 19:15:36 04/20/20 22 04/20/2022 CT, abdom en + pelvi s, w/ contr ast No observ ation record ed. [id number] [facility] Scheduling 1 [facility], [place], [address], 08/16/2022 19:15:36 10/31/19 23 09/06/2022 imagi ng/di agnos tic resul t No observ ation record ed. [email or web address] [facility] [address], [place], [address], 10/31/2022 16:03:41 10/31/19 23 09/06/2022 MRI, knee, w/ contr ast No observ ation record ed. [email or web address] [facility] [address], [place], [address], 10/31/2022 16:02:17 Result Notes None recorded. Problems Name Problem SNOMED Code Status Onset Date Resolution Date Notes Provider Name and Address Organization Details Recorded Time Mixed anxiety and depressive disorder 893436966 Active 2021 Not Available [facility] 3 19:14:24 Streptococ lisa sore throat 22342421 Active 2022 Not Available [facility] 3 19:14:24 Pain of left knee joint 6443176131442 07 Active 2020 Not Available [facility] 3 19:14:24 Upper respirator y infection 99834794 Active 2022 Not Available [facility] 3 19:14:24 Disorder of intestine 43840385 Active 2021 Not Available [facility] 3 19:14:25 Mild major depression 76862360 Active 2021 Not Available [facility] 3 19:14:25 Acute right otitis media 535915131 Active 2022 ALICE Hopkins [address], [address], [place], [address] , [email or web address] 3 09:54:33 Cough 63409839 Active 2022 ALICE Hopkins [address], [address], [place], [address] , [employer] 3 09:55:01 Reactive airway disease 803211397017 Active 2022 ALICE Hopkins [address], [address], [place], [address] , [employer] [facility] [employer] 3 09:55:29 Lynne shaw 2090853 Active 2022 ALICE Hopkins [address], [address], [place], [address] , [employer] [facility] [employer] [facility] 3 15:37:58 Acute low back pain 047179889 Active 2022 ALICE Hopkins [address], [address], [place], [address] , [employer] [facility] [employer] 3 13:07:07 Problem Notes None recorded. Medical Equipment None Reported. Allergies No known drug allergies Medications Name Sig Start Date Stop Date Status Note LastModified by Organization Details LastModified Time cyclobenzap rine 10 mg tablet TAKE 1 TABLET BY MOUTH THREE TIMES DAILY NEEDED 05/21 completed Not Available Not Available Not Available medroxyprog esterone 10 mg tablet TAKE ONE TABLET BY MOUTH DAILY FOR 10 DAYS 03/23 completed Not Available Not Available Not Available prednisone 10 mg tablet 06/16 completed Not Available Not Available Not Available Gel-Jens 0.4 % dental 02/09 completed Not Available Not Available Not Available azithromyci n 250 mg tablet TAKE 2 TABLETS (500 MG) BY ORAL ROUTE ONCE DAILY FOR 1 DAY THEN 1 TABLET (250 MG) BY ORAL ROUTE ONCE DAILY FOR 4 DAYS active Not Available Not Available No t Available benzonatate 200 mg capsule Take 1 capsule 3 times a day by oral route. 08/30 completed Not Available Not Available Not Available hydrocodone 5 mg-acetamin ophen 325 mg tablet 02/12 completed Not Available Not Available Not Available meloxicam 15 mg tablet 10/26 completed Not Available Not Available Not Available bupivacaine HCl 0.5 % (5 mg/mL) injection solution Take 40 mg by injection route. 10/26 completed Not Available Not Available Not Available terconazole 0.8 % vaginal cream 02/12 completed Not Available Not Available Not Available ciprofloxac in 500 mg tablet 02/16 completed Not Available Not Available Not Available sulfamethox azole 800 mg-trimetho prim 160 mg tablet TAKE 1 TABLET BY MOUTH EVERY 12 HOURS 05/01 completed Not Available Not Available Not Available prednisone 10 mg tablets in a dose pack Take 1 tab by mouth, 3 times a day for 3 daysTake 1 tab by mouth 2 times a day for 2 daysTake 1 tab by mouth once a day for 1 day 06/16 completed Not Available Not Available Not Available amoxicillin 875 mg tablet Take 1 tablet every 12 hours by oral route for 7 days. 08/29 completed Not Available Not Available Not Available Kenalog 10 mg/mL suspension for injection In office injection administe red by the provider 12/12 completed [facility]: [phone] Not Available Not Available Not Available Proctozone- HC 2.5 % topical cream perineal applicator 02/09 completed Not Available Not Available Not Available cephalexin 500 mg capsule 02/16 completed Not Available Not Available Not Available neomycin-po lymyxin-dex ameth 3.5 mg/mL-10,00 0 unit/mL-0.1 % eye drops INSTILL 1 DROP IN THE LEFT EYE FOUR TIMES DAILY FOR 4 DAYS 04/25 completed Not Available Not Available Not Available sertraline 25 mg tablet TAKE 1 TABLET BY MOUTH EVERY DAY IN THE EVENING. active Not Available Not Available No t Available mupirocin 2 % topical ointment APPLY A SMALL AMOUNT TO THE AFFECTED AREA OF GROIN THREE TIMES DAILY 05/21 completed Not Available Not Available Not Available ergocalcife rol (vitamin D2) 1,250 mcg (50,000 unit) capsule 02/12 completed Not Available Not Available Not Available ibuprofen 600 mg tablet 02/12 completed Not Available Not Available Not Available methylpredn isolone 4 mg tablets in a dose pack FOLLOW PACKAGE DIRECTION S 05/01 completed Not Available Not Available Not Available albuterol sulfate HFA 90 mcg/actuati on aerosol inhaler INHALE 2 PUFFS BY MOUTH EVERY 4 TO 6 HOURS NEEDED 10/26 completed Not Available Not Available Not Available ondansetron 4 mg disintegrat ing tablet 04/25 completed Not Available Not Available Not Available fluticasone propionate 50 mcg/actuati on nasal spray,suspe nsion inhale 2 sprays each nostril daily active Not Available Not Available No t Available naproxen 500 mg tablet TAKE 1 TABLET BY MOUTH TWICE DAILY WITH MEALS 04/28 completed Not Available Not Available Not Available amoxicillin 875 mg-potassiu m clavulanate 125 mg tablet TAKE 1 TABLET BY MOUTH EVERY 12 HOURS 10/25 completed Not Available Not Available Not Available Sprintec (28) 0.25 mg-0.035 mg tablet TK 1 T PO QD 02/24 completed Not Available Not Available Not Available bupropion HCl XL 300 mg 24 hr tablet, extended release TAKE 1 TABLET BY MOUTH EVERY DAY active Not Available Not Available No t Available bupropion HCl XL 150 mg 24 hr tablet, extended release TAKE 1 TABLET BY MOUTH EVERY DAY IN THE MORNING 06/08 completed Not Available Not Available Not Available TriNessa (28) 0.18 mg(7)/0.215 mg(7)/0.25 mg(7)-35 mcg tablet 02/09 completed Not Available Not Available Not Available nitrofurant oin monohydrate /macrocryst als 100 mg capsule TAKE 1 CAPSULE BY MOUTH TWICE DAILY FOR 5 DAYS 07/12 completed Not Available Not Available Not Available duloxetine 30 mg capsule,del ayed release TAKE 1 CAPSULE BY MOUTH EVERY DAY IN THE MORNING active Not Available Not Available No t Available Virt-C DHA 35 mg-1 mg-200 mg capsule TK 1 T PO D 02/09 completed Not Available Not Available Not Available Fluzone Quad (PF) 60 mcg (15 mcg x 4)/0.5 mL IM syringe active Not Available Not Available N ot Available ID NOW COVID-19 Test Kit TEST DIRECTED 02/24 completed Not Available Not Available Not Available Afluria Qd 2019- (36 mos up)(PF)60 mcg (15 mcg x4)/0.5 mL IM syringe ADM 0.5ML IM UTD 02/24 completed Not Available Not Available Not Available BinaxNOW COVID-19 Ag Self Test kit TEST DIRECTED TODAY 04/26 completed Not Available Not Available Not Available Vitals Date Recorded Body height Body temperature Body mass index (BMI) Body weight Heart rate Oxygen saturation Oxygen saturation in Arterial blood by Pulse oximetry Systolic And Diastolic Provider Name and Address Organization Details Last Updated DateTime 3 172.72 cm 97.7 [degF] 23.6 kg/m2 31394.8 2 g 67 /min 96 % 96 % 110/68 mm[Hg] Megan Maher MA [facility] [employer] [facility] 3 09:26:04 Date Recorded Body height Body temperature Body mass index (BMI) Body weight Respiratory rate Oxygen saturation Oxygen saturation in Arterial blood by Pulse oximetry Heart rate Systolic And Diastolic Provider Name and Address Organization Details Last Updated DateTime 3 172.72 cm 97.8 [degF] 23.8 kg/m2 03785.2 1 g 16 /min 98 % 98 % 76 /min 112/72 mm[Hg] XANDER Soto [facility] [employer] [facility] 3 14:08:27 Date Recorded Body mass index (BMI) Body height Oxygen saturation Oxygen saturation in Arterial blood by Pulse oximetry Heart rate Respiratory rate Body temperature Body weight Systolic And Diastolic Provider Name and Address Organization Details Last Updated DateTime 2 23.4 kg/m2 172.72 cm 99 % 99 % 70 /min 16 /min 97.9 [degF] 60346.2 2 g 108/64 mm[Hg] Not Available [facility] 3 19:14:12 Date Recorded Body height Oxygen saturation Oxygen saturation in Arterial blood by Pulse oximetry Heart rate Body temperature Body weight Systolic And Diastolic Provider Name and Address Organization Details Last Updated DateTime 2 172.72 cm 98 % 98 % 77 /min 98.5 [degF] 09937.2 2 g 118/70 mm[Hg] Not Available [facility] 3 19:14:12 Date Recorded Body height Body temperature Body mass index (BMI) Body weight Respiratory rate Oxygen saturation Oxygen saturation in Arterial blood by Pulse oximetry Heart rate Systolic And Diastolic Provider Name and Address Organization Details Last Updated DateTime 3 172.72 cm 97.9 [degF] 23.2 kg/m2 86480.8 4 g 16 /min 98 % 98 % 77 /min 120/80 mm[Hg] XANDER Soto [facility] [employer] [facility] 3 15:38:55 Social History Question Answer Notes LastModified by Organizat ion Details LastModified Time Tobacco Smoking Status Former Smoker Jayleen Ayala, RMDary null, [place] [facility] 05/21/2023 15:34:19 Do You Have An Advance Directive? No [id number] Information not available 08/16/2022 If You Are , What Was Your Level Of Alcohol Consumption Prior To ? None [email or web address] Information not available 05/21/2023 Do You Wear A Helmet When Biking? No [email or web address] Information not available 05/21/2023 What Is Your Level Of Caffeine Consumption? None [id number] Information not available 08/16/2022 In The 14 Days Before Symptom Onset, Have You Had Close Contact With A Laboratory-confirm ed COVID-19 While That Case Was Ill? No [email or web address] Information n ot available 05/21/2023 In The 14 Days Before Symptom Onset, Have You Had Close Contact With A Person Who Is Under Investigation For COVID-19 While That Person Was Ill? No [email or web address] Information not available 05/21/2023 What Is The Highest Grade Or Level Of School You Have Completed Or The Highest Degree You Have Received? [id number] [email or web address] Information not available 05/21/2023 Have There Been Any Changes To Your Family Or Social Situation? No [email or web address] Information no t available 05/21/2023 When Did You Quit Smoking? 1-5yearssinc elastcigaret te [email or web address] Information not available 05/21/2023 Are There Any Guns Present In Your Home? No [email or web address] Information not available 05/21/2023 Do You Use Insect Repellent Routinely? Yes [email or web address] Information not available 05/21/2023 Do You Have A Medical Power Of Liner Inserter? No [email or web address] Information not available 05/21/2023 What Was The Date Of Your Most Recent Tobacco Screening? 04/28/2021 [email or web address] Information not available 05/21/2023 Have You Ever Been Counseled For Unhealthy Alcohol Use? No [email or web address] Information not available 05/21/2023 What Is Your Relationship Status? [id number] Information not available 08/16/2022 Do You Use Your Seat Belt Or Car Seat Routinely? Yes [email or web address] Information not available 05/21/2023 Do You Have Smoke And Carbon Monoxide Detectors In Your Home? Yes [email or web address] Information not available 05/21/2023 At What Age Did You Start Smoking Tobacco? 17 [email or web address] Information not available 05/21/2023 Do You Use Sunscreen Routinely? Yes Information not available 05/21/2023 Has Tobacco Cessation Counseling Been Provided? No [email or web address] Information not available 05/21/2023 Have You Recently Traveled Abroad? No [email or web address] Information not available 05/21/2023 Do You Have Any Dietary Restrictions? No Information not available 05/21/2023 Sex: Unknown Functional Status Question Answer Note LastModified by Organizat ion Details LastModified Time Do you use any illicit or recreational drugs? No [email or web address] Information not available 05/21/2023 Do you or have you ever used any other forms of tobacco or nicotine? No [email or web address] Information not available 05/21/2023 What is your level of alcohol consumption? Occasional [id number] Information not available 08/16/2022 Are you currently employed? 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 Moderate [id number] Information not available 08/16/2022 Mental Status Question Answer Note LastModified by Organization D etails LastModified Time Do you feel stressed (tense, restless, nervous, or anxious, or unable to sleep at night)? [id number] [email or web address] Information not available 05/21/2023 Family History Relationship Description Onset Age of this Age Resolved Age Notes LastModified by Organization Details LastModified Time Father No current problems or disability [id number] Not available 08/16/2022 19:13:24 Mother No current problems or disability [id number] Not available 08/16/2022 19:13:24 Medical History Condition Response URINARY/BLADDER/KIDNEY PROBLEMS Y Gynecological History Statement/Question Response Menses Monthly Y Abnormal Pap N Date of Last Pap 02/16/2020 Current Control Method BCPs Date of LMP 01/28/2020 Sexually Active? Y Obstetrics History GPAL:G 1 P 0 0 0 1 Type Value Living 1 Total 1 Immunizations Vaccine Type Date Status Note Provider Nam e and Address Organization Details Recorded Time influenza, unspecified formulation 6 completed Not Available [facility] 08/16/2022 19:15:32 Hep A, adult 2 completed Not Available [facility] 08/16/2022 19:15:32 Past Encounters Encounter ID Performer Location Encounter Start Date Encounter Closed Date Diagnosis/Indication Diagnosis SNOMED-CT Code Diagnosis ICD10 Code Diagnosis Note [id number] ALICE Hopkins [facility] [address] [place] [address] 02/25/2021 00:00:00 03/17/2021 00:36:11 [id number] ALICE Hopkins [facility] [address] [place] [address] 03/23/2021 00:00:00 04/15/2021 13:08:03 [id number] Hi Mcintyre MD [facility] [address] [facility] [address] [place] [address] 04/28/2021 00:00:00 04/28/2021 14:46:46 [id number] Hi Mcintyre MD [facility] [address] [place] [address] 06/16/2021 00:00:00 06/16/2021 10:14:16 [id number] Hi Mcintyre MD [facility] [address] [facility] [address] [place] [address] 07/12/2021 00:00:00 07/12/2021 15:46:32 [id number] Mohit Will MD [facility] [address] [place] [address] 11/23/2021 00:00:00 12/15/2021 18:57:36 [id number] ALICE Hopkins [facility] [address] [place] [address] 04/26/2022 00:00:00 05/17/2022 21:17:37 [id number] ALICE Hopkins [facility] [address] [place] [address] 08/30/2022 09:18:51 08/30/2022 10:33:25 Acute right otitis media 566076907 H66.91 start augmentin course as directed Cough 40356472 R05.9 Rx for albuterol hfa as directed Reactive a irway disease 5076913970 06 J45.909 start [facility] [id number] ALICE Hopkins [facility] [address] [place] [address] 10/26/2022 14:02:49 10/26/2022 14:42:56 Mixed anxiety and depressive disorder 384303849 F41.8 stable on wellbutrin XL 300mg daily and sertraline 25mg qhs. pt is pleased with results. Cholesterol screening 27 8989664 Z13.220 fasting labs are due Diabetes m ellitus screening 096703085 Z13.1 diabetes screening due Long-term drug therapy 706473733 Z79.899 routine cbc and cmp due Thyroid di sorder screening 382586819 Z13.29 screening TFTs due [id number] ALICE Hopkins [facility] [address] [place] [address] 05/21/2023 15:33:49 05/21/2023 16:38:33 Mixed anxiety and depressive disorder 233158102 F41.8 stable on wellbutrin XL 300mg daily and sertraline 25mg qhs. pt is pleased with results. Long-term drug therapy 424165602 Z79.899 labs are UTD Adult heal th examination 684356117 Z00.01 annual well exam completed Health Concerns Section Related Observation LastModified by Organization Detai ls LastModified Time None Recorded Concern Status LastModified by Organization Details LastModified Time None Recorded Advance Directives Directive N: Payers Insurance Date Sequence Insurance Name Policy Number Policy Mckeon Covered Member ID Mckeon Member ID Guarantor Name 06/13/2023 1 [facility] [id number] Bacilio Allen [id number] Valentina Allen Notes Date Note Type Note Provider Name and Address Organization Details Recorded Time 2 text/html Abdominal PainReported bypatient.Location:[facility] al[facility] Quality:pain;bloating Severity:severe Duration:constant Onset/Timing:better Alleviating Factors:moving bowels Other:denies possible ; uses control Previous Tests, Treatment and/or Diagnostic Procedures:CT of the abdomen Not Available [email or web address] 12/15/2021 18:57:36 2 text/html Anxiety, Generalized DisorderReported bypatient.Associated Symptoms:no difficulty concentrating; no difficulty controlling worry; no difficulty swallowing; no anxiety; no excessive sweating; no hot flashes; no palpitations; no shortness of breath; no nausea; no diarrhea; no fatigue; no irritability; no muscle tension; no muscle aches; no trembling; no twitching; no headaches; no restlessness; no sleep disturbances Not Available [email or web address] 05/17/2022 21:17:37 3 text/html Anxiety/DepressionReport ed bypatient.Severity:denie s suicidal ideations; able to maintain relationships; does not interfere with activities of daily living Context:no major life stressors Associated Symptoms:denies homicidal ideations; no significant weight gain; no visual/auditory hallucinations; no delusions;shortness of breathCoughReported bypatient.Quality:loose; non productive; no hemoptysis Severity:improving (very slightly) Duration:intermittent Timing:sudden Context:non-smoker; recently quit vaping Associated Symptoms:no wheezing ; no edema; no fever; no chills; no nausea;dyspnea at rest;post nasal drip;chest pain;daytime somnolence ALICE Hopkins [address] [facility] [address], [address], [email or web address] 09/15/2022 16:23:35 3 text/html Anxiety/DepressionReport ed bypatient.Quality:doesnt matter time of day. Severity:denies suicidal ideations; able to maintain relationships; does not interfere with activities of daily living Duration:symptoms lasting over 2 weeks Onset/Timing:still present Context:no major life stressors Modifying Factors:rx Associated Symptoms:denies homicidal ideations; no significant weight gain; no significant weight loss; no visual/auditory hallucinations; no delusions; no shortness of breath ALICE Hopkins [address] [place] [address], [place], [address], [facility] [employer] [facility] 11/15/2022 22:34:03 3 text/html Anxiety/DepressionReport ed bypatient.Quality:doesnt matter time of day. Severity:denies suicidal ideations; able to maintain relationships; does not interfere with activities of daily living Duration:symptoms lasting over 2 weeks Onset/Timing:still present Context:no major life stressors Associated Symptoms:denies homicidal ideations; no significant weight gain; no significant weight loss; no visual/auditory hallucinations; no delusions; no shortness of breath well exam ALICE Hopkins [address], [place] [address], [place], [address], [facility] [employer] [facility] 06/13/2023 11:16:47 OBGyn Episode No OBEpisode recorded.
--- NOTE | 2024-12-24 17:35 | ED.LOWEXIN ---
HPI - Extremity Injury (Lower) General Chief Complaint: Extremity Injury, Lower Stated Complaint: LT Knee Pain Time Seen by Provider: 12/24/24 17:35 Source: patient Mode of arrival: ambulatory Limitations: no limitations History of Present Illness HPI Narrative: Rusty is a 34-year-old female patient presenting to the clinic today with complaints of left knee pain x1 day. She reports yesterday she was working out and had both hands and knees on the floor and she was lifting/alternating dumbells. After she finished her work out she felt as though her left knee was swollen. Is having pain with full extension and full flexion of the left knee. Does have a clicking sensation in the knee when going up and down steps and walking at times. Related Data Home Medications ?Medication ?Instructions ?Recorded ?Confirmed ?Last Taken ?Type bupropion HCl 300 mg 24 hr tablet, mg PO 12/24/24 Unknown History extended release sertraline 25 mg tablet mg 12/24/24 Unknown History Allergies Allergy/AdvReac Type Severity Reaction Status Date / Time No Known Allergies Allergy Verified 12/24/24 17:41 Review of Systems Review of Systems: Pertinent positives per HPI. Patient denies any fever, chills, rash, headache, visual changes, dizziness, cough, runny nose, sore throat, shortness of breath, chest pain, palpitations, nausea, vomiting, diarrhea, constipation, abdominal pain, or any urinary issues. PMFSH Comments At the time of my signature, I reviewed and agree with the nursing past medical, surgical, social, and family history. There is no relevant family history pertinent to the patient complaint. Exam Narrative: General: Well-developed, well nourished, in no apparent distress Head: Normocephalic, atraumatic. Cardio: Regular rate and rhythm, s1 and s2 normal, no murmur appreciated. Resp: Clear to auscultation bilaterally, no rhonchi, rales, wheezing or rubs. Musculoskeletal: No deformity, non-tender to palpation, pain with full flexion and full extension over the mid anterior joint under the patella, unable to fully flex or extend the left knee passively, muscle strength strong and equal, peripheral pulse strong, no edema, no cyanosis, normal gait and station Course Course Emergency Course: Portions of this record may have been created with voice recognition software. Level of Care: Express Care Visit Vital Signs Vital signs: Vital Signs Temperature 36.3 C L 12/24/24 17:40 Pulse Rate 71 12/24/24 17:40 Respiratory Rate 18 12/24/24 17:40 Blood Pressure 114/75 12/24/24 17:40 Pulse Oximetry 100 12/24/24 17:40 Oxygen Delivery Room Air 12/24/24 17:40 Temperature 36.3 C L 12/24/24 17:40 Pulse Rate 71 12/24/24 17:40 Respiratory Rate 18 12/24/24 17:40 Blood Pressure 114/75 12/24/24 17:40 Pulse Oximetry 100 12/24/24 17:40 Oxygen Delivery Room Air 12/24/24 17:40 Vital signs reviewed MDM - Extremity Injury (Lower) MDM Narrative Medical decision making narrative: At the time of visit patient is resting comfortably on the exam table. Patient appears to be nontoxic. Diagnostics: X-ray of the left knee was performed and negative for any sign of fracture or malalignment. Plan: I suspect patient has acute knee pain/swollen joint-could likely have a meniscus injury. Recommend follow-up with Ortho or PCP for further evaluation if symptoms persist. Prescription for Medrol Dosepak was sent to the pharmacy. Seth wrap was given an ice pack was given in the clinic today. Supportive measures were discussed with the patient and they voiced understanding discharge instructions and agrees to treatment plan. Return precautions reviewed Differential Diagnosis Differential diagnosis: Likely acute internal derangement of knee and other (Knee sprain, knee contusion, soft tissue injury) Imaging Data Radiologist's impression: ITS Impressions Knee X-Ray 12/24/24 18:10 IMPRESSION: No acute osseous abnormality left knee. Discharge Plan Discharge Clinical Impression: Acute knee pain Qualifiers: Laterality: left Qualified Code(s): M25.562 - Pain in left knee Patient Disposition: Home Condition: Stable Instructions: Antibiotic Form, Swollen Knee Joint (ED), Knee Pain (ED) Additional Instructions: X-rays of the left knee are negative for any sign of fracture or malalignment. You may have a meniscus injury Rest, ice, elevate, and wear seth wrap as directed May use hinged knee brace for support Tylenol/motrin for pain as discussed. Gradually bear weight No running or sports until healed. Follow up with your PCP if symptoms persist more than 1 week. May need further imaging such as CT or MRI if symptoms persist Patient Language: Sinhala Prescriptions: New methylprednisolone [Medrol (Brandan)] 4 mg tablets,dose pack See Rx Instructions PO .COMPLEX Qty: 21 0RF Rx Instructions: orally per package directions No Action sertraline 25 mg tablet bupropion HCl 300 mg tablet extended release 24 hr PO Follow-up/Referrals: Steven Hernández MD [Physician] - 2 Days (Acute left knee pain-possible meniscus injury) UNKNOWN,DOCTOR [Non-Staff] - Time of Disposition: 18:16 Quality NIHSS Nursing Documentation ED NIHSS nursing documentation: reviewed/agree
--- OUTSIDE RECORDS SUMMARY | 2024-12-24 17:35 | XMS_ITS | Data Portability ---
Author Organization [facility] Address [address] [place] [address] [place] [address] Care Team Providers Care Customer Service Representative Name Role Phone TERESO FIERRO Primary Care Provider Assessment Encounter Date Assessment Date Assessment LastModified by Organization Details LastModified Time 08/28/2024 08/28/2024 Annual gynecological exam performed. Patient will come back in a year unless there are new symptoms. [email or web address] Not available 08/28/2024 14:07:26 Plan of Treatment Reminders Order Date Submit Date Provider Last Modified By Organization Details Last Modified Time Details Appointments None recorded. Lab pap, IG + HR HPV - HPV regardless but if HPV is positive need subtyping 16,18/45 2024 025 [facility] (Lab), [address], [place], [address], 5 15:44:09 Referral None recorded. Procedures None recorded. Surgeries None recorded. Imaging MAMMO, unilateral, left and US, breast, left - Small, 1 cm mass noted at 1 o'clock position of left upper, outer breast 2024 025 [facility], [address], [place] [address], [place], [address], 5 04:02:52 Medication Orders None recorded. Patient TargetsNo targets recorded. Patient InstructionsNo instructions recorded. Reason for Referral None Reported. Results Created Date Observation Date Name Description Value Unit Range Abnormal Flag Note LastModifiedBy Organization Detail LastModifiedTime 08/29/1908/28/2024 IMAGE GUIDE D PAP AND HPV REGAR DLESS image guided Pap, HPV regardless of Pap result SEE RESULT S BELOW CASE REPOR T: Cytol ogy Gynec ologi lisa Repor t Case: [id number] Autho jhon hogan Provi pedro: Dermo dy, Liss , ANP, SENIOR SPEECH PATHOLOGIST Colle cted: 08/28 1342 Order ing Locat ion: [place] [facility] Recei domingo: 08/29 0715 First Manuel n: Anat Brown, CT Speci men: Manuel salazar Pap - Image d, Cervi x STATE MENT OF ADEQU ACY: Satis facto ry for evalu ation Trans forma tion zone compo nent prese nt ----- ----- ----- ----- ----- ----- ----- ----- ----- ----- ----- ----- ----- ----- ----- ----- ----- ---- FINAL DIAGN OSIS: Negat krishan for Intra epith elial Jani daniel or Darlene bynum (NIL) . Elect geronimo monet by Anat Brown, MERCEDES on 2024 at 1439 CDT ----- ----- ----- ----- ----- ----- ----- ----- ----- ----- ----- ----- ----- ----- ----- ----- ----- ---- HPV RESUL TS: HPV mRNA E6/E7 : No HPV mRNA Detec ramirez NOTE: This high risk HPV mRNA assay detec ts fourt een high- risk HPV types (16, 18, 31, 33, 35, 39, 45, 51, 52, 56, 58, 59, 66, 68) witho ut diffe renti ation . COMME NT: This speci men was revie wed by a Cytot echno logis t and/o r Patho logis t (as indic ated in this repor t) after evalu ation using the Thinp rep Imagi ng Syste m. CLINI LISA INFOR MATIO N: Menst rual Statu s: LMP (if appli cable ): Clini lisa Histo ry/Pr eviou s Pap: Type of Neopl yvan (if appli cable ): Signi fican t Clini lisa Findi ngs: Other Histo ry: Hormo lori (if appli cable ): PAP EDUCA LIANNA L NOTE: The Pap Test is a scree martin test with an inher ent false negat krishan rate. Liqui d-bas ed sampl ing may decre ase, but will not elimi darian, false negat krishan resul ts. A negat krishan resul t does not precl ude the prese nce and/o r devel opmen t of disea se, since the prese nce of abnor mal cells in the sampl e depen ds on the locat ion of the lesio n and sampl ing techn ique. Salty nued regul ar scree martin is the best metho d of cance r preve ntion . If repor ramirez cytol ogic findi ng do not corre late with physi lisa and/o r histo rical findi ngs, furth er inves tigat ion is recom sarwat d, as clini kelsey warra nted. Not Available [facility] (Lab) [address], [place], [address], 09/02/2024 15:44:09 09/20/19 25 09/19/2024 MAMMO , diagn ostic , unila teral No observ ation record ed. [facility] [address], [place], [address], 09/24/2024 12:18:47 Result Notes None recorded. Medical Equipment None Reported. Allergies No known drug allergies Medications Name Sig Start Date Stop Date Status Note LastModified by Organization Details LastModified Time prednisone 50 mg tablet TAKE 1 TABLET BY MOUTH EVERY DAY FOR 5 DAYS 08/28 completed Not Available Not Available Not Available sertraline 25 mg tablet TAKE 1 TABLET BY MOUTH EVERY DAY active Not Available Not Available No t Available codeine 10 mg-guaifene sin 100 mg/5 mL oral liquid TAKE 10 ML BY MOUTH EVERY 4 TO 6 HOURS NEEDED 08/28 completed Not Available Not Available Not Available methylpredn isolone 4 mg tablets in a dose pack FOLLOW PACKAGE DIRECTION S 08/28 completed Not Available Not Available Not Available cefdinir 300 mg capsule TAKE 1 CAPSULE BY MOUTH EVERY 12 HOURS 08/28 completed Not Available Not Available Not Available amoxicillin 875 mg-potassiu m clavulanate 125 mg tablet TAKE 1 TABLET BY MOUTH EVERY 12 HOURS 08/28 completed Not Available Not Available Not Available bupropion HCl XL 300 mg 24 hr tablet, extended release TAKE 1 TABLET BY MOUTH EVERY DAY active Not Available Not Available No t Available Vitals Date Recorded Body height Body mass index (BMI) Body weight Systolic And Diastolic Provider Name and Address Organization Details Last Updated DateTime 08/28/2024 172.72 cm 22.5 kg/m2 66952.39 g 115/78 mm[Hg] Rebecca Tillman [facility] 08/28/2024 13:56:31 Social History Question Answer Notes LastModified by Organizat ion Details LastModified Time Do You Have An Advance Directive? No [email or web address] Information n ot available 08/28/2024 Are You Blind Or Do You Have Difficulty Seeing? No [email or web address] Information not available 08/28/2024 What Is Your Level Of Caffeine Consumption? Moderate [email or web address] Information not available 08/28/2024 In The 14 Days Before Symptom Onset, Have You Had Close Contact With A Laboratory-confirme d COVID-19 While That Case Was Ill? No Information n ot available 08/28/2024 In The 14 Days Before Symptom Onset, Have You Had Close Contact With A Person Who Is Under Investigation For COVID-19 While That Person Was Ill? No [email or web address] Information not available 08/28/2024 Have You Been To An Area Known To Be High Risk For COVID-19? No [email or web address] Information not available 08/28/2024 Are You Deaf Or Do You Have Serious Difficulty Hearing? No [email or web address] Information not available 08/28/2024 What Type Of Diet Are You Following? REGULAR [email or web address] Information n ot available 08/28/2024 What Is The Highest Grade Or Level Of School You Have Completed Or The Highest Degree You Have Received? [id number] [email or web address] Information not available 08/28/2024 Are There Any Guns Present In Your Home? Yes [email or web address] Information not available 08/28/2024 Do You Use Protection During Sex? No Information not available 08/28/2024 Do You Use Your Seat Belt Or Car Seat Routinely? Yes [email or web address] Information not available 08/28/2024 Are You Sexually Active? Yes [email or web address] Information not available 08/28/2024 Do You Have Smoke And Carbon Monoxide Detectors In Your Home? Yes Information not available 08/28/2024 How Much Tobacco Do You Smoke? No [email or web address] Information not available 08/28/2024 Do You Use Sunscreen Routinely? Yes [email or web address] Information not available 08/28/2024 Have You Used IV Drugs? No [email or web address] Information not available 08/28/2024 Do You Have Difficulty Walking Or Climbing Stairs? No Information not available 08/28/2024 Sex: Unknown Functional Status Question Answer Note LastModified by Organizat ion Details LastModified Time Do you use any illicit or recreational drugs? No [email or web address] Information not available 08/28/2024 What is your level of alcohol consumption? Moderate [email or web address] Information not available 08/28/2024 Are you currently employed? Yes [email or web address] Information not available 08/28/2024 Are you able to walk? 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 No [email or web address] Information not available 08/28/2024 What is your exercise level? Moderate [email or web address] Information not available 08/28/2024 Mental Status Question Answer Note LastModified by Organization D etails LastModified Time Do you feel stressed (tense, restless, nervous, or anxious, or unable to sleep at night)? [id number] [email or web address] Information not available 08/28/2024 Family History Relationship Description Onset Age of this Age Resolved Age Notes LastModified by Organization Details LastModified Time Unspecified Relation Family history unknown Not available 2024 13:50:25 Medical History Condition Response Allergies (Food, seasonal, environmental ) N Other N Drug/Latex Allergies/Reactions N Blood Transfusion N Breast Cancer N Dermatologic Disorders N Lung Disease N Defects or Inherited Disease N Breast Problem N Gestational Diabetes N Hematologic disorders N Anesthesia Complications N History of STI N Deep Vein Thrombosis N Polycystic ovary syndrome N Anxiety Disorder N Autoimmune disease N Arthritis N Polyps N Infertility N Acid Reflux (GERD) N History of abnormal pap N Cancer N Varicosities N Stroke N Neurologic/Epilepsy N Endometriosis N High Cholesterol N Fibromyalgia N Headaches N Kidney Disease N Heart Problems N Thyroid Problems N Kidney or Bladder Problems N GI Problems N Eating Disorder N Anemia N Art (IVF or FET) N Psychiatric Illness N Ovarian Cancer N Diabetes N Pulmonary (TB, Asthma) N Hepatitis/Liver Disease N No Past Medical History N Eczema N Urinary Tract Infection N Abuse/Domestic Violence N Asthma N Trauma/Violence N Depression/ depression N Heart Disease N Pre-Eclampsia N Hypertension N Osteoporosis N Thrombophilias N Gynecological History Statement/Question Response Flow Moderate Date of LMP 08/11/2024 N On BCP's at Conception? N HPV Vaccine N Duration of Flow (days) 5 Current Control Method IUD Age at First Child 26 Sexually Active? Y Menses Monthly Y Age of first menstrual cycle 15 Date of Last Pap Smear LMP Definite N Obstetrics History GPAL:G 1 P 1 0 0 1 Type Value Full Term 1 Living 1 Total 1 Past Encounters Encounter ID Performer Location Encounter Start Date Encounter Closed Date Diagnosis/Indication Diagnosis SNOMED-CT Code Diagnosis ICD10 Code Diagnosis Note [id number] Hansel Coello MD [facility] [address] [address] 08/28/2024 13:47:51 08/28/2024 14:25:05 Gynecologic examination 66917912 Z01.419 Annual gynecologi lisa exam performed. Patient will come back in a year unless there are new symptoms. Suggest Calcium with Vitamin D if not eating in diet. Patient advised to get annual flu shot. Recommend yearly physicals and perform monthly breast exams. Genetic testing is available for patients with family history of cancer. Engage in safe sexual practices, use condoms. Encouraged to have daily exercise. Avoid tobacco and illicit drugs, moderation of alcohol. If BMI greater than 25 dietary consult advised. If you have any questions please call or email. Pap smear- pap w/ HPV collected laboratory evaluation - PCP STI testing - declined Discussed that paraguard IUD is effective for 10 years for contracept ion. IUD will 04/2030. Lump in up per outer quadrant of left breast [id number] N63.21 We discussed her breast exam findings and pt is counseled. Questions answered.I maging: Unilateral left breast ultrasound and diagnostic mammogram ordered for further evaluation of left breast mass.Elvia bey to call [facility] to schedule.F U for WWE in one year.Elvia bey advised to perform self-breas t exams and report any changes. Health Concerns Section Related Observation LastModified by Organization Detai ls LastModified Time None Recorded Concern Status LastModified by Organization Details LastModified Time None Recorded Advance Directives Directive N: Payers Insurance Date Sequence Insurance Name Policy Number Policy Mckeon Covered Member ID Mckeon Member ID Guarantor Name 08/25/2024 1 [employer] [id number] Bacilio Allen [id number] Valentina Allen Notes Date Note Type Note Provider Name and Address Organization Details Recorded Time 08/28/2024 text/html Annual GYNReport ed bypatient.Menstrua l cycle:Normal menses Urinary symptoms:No hematuria; No incontinence Vulva:No genital lesion Vagina:Normal vaginal discharge Breast:No breast pain; No breast lump; No nipple discharge Current Contraception:Sati sfied with current contraception; Intrauterine device (iud) Sexual complaints:No sexual complaints; No pain during intercourse; Normal libido Menopausal Symptoms:No menopausal symptoms; Normal vaginal lubrication Psychological symptoms:No depression; No anxiety; No PMDD Preventive measures:Encourage self breast examination; Encourage regular exercise; Encourage no tobacco use; Encourage regular mammograms starting age 40 New patient presents to establish care. LISS ROBBINS, LYNSEY [address], [place], [address], [facility] 08/28/2024 14:24:21 OBGyn Episode Ob Episode Information Episode Created Date Number of Fetuses Patient Bloodtype Patient rh Status Prepregnancy Weight lbs Domestic Partner Domestic Partner Phone Father Name Solutions Manager Status 08/29/19 25 1 CLOSED Fetus Data First Name Last Name Admitted to NICU Weight (g) Sex Living Outcome Pediatric Complications Fetus ID Race Codes Race Delivery Type [id number] F Full Term [id number] Vaginal Delivery Favian Calculation Initial Favian Date Initial Exam Date Initial Exam Provider Initial Ultrasound Date Last Menstrual Period Date Ultra Sound Weeks Gestation 0 Eighteen To Twenty Week Favian Update Ultra Sound Date Fundal Height At Umbil Quickening Date Ultra Sound Latest Weeks Gestation Final Favian Confirmed By Final Favian Confirmed Date Final Favian Date Ultra Sound Latest Days Gestation 0 0 Menstrual History Last Menstrual Date Menses Monthly On Bcp Conception Prior Menses Frequency Hcg Plus Date Menarche Onset Age Delivery Information Delivery Date Delivery Type Labor Anesthesia Weeks Gestation Incision Type Labor Labor Length Hrs Delivered By Post Complications Tubal Sterilization Discharge Date Comments 7 40 Discharge Information Feeding Method Contraceptive Method Maternal HG B and HCT Levels
--- OUTSIDE RECORDS SUMMARY | 2024-12-24 17:35 | XMS_ITS | Clinical Summary ---
Author Organization [facility] Address [facility] [place] [address] Care Team Providers Care Gis Specialist Name Role Phone Angelita Byrnes Primary Care Pr ovider Allergies No known active allergies Medications benzonatate (TESSALON) 200 mg capsule Take 200 mg by mouth 3 (three) times a day 3 Active buPROPion XL (WELLBUTRIN XL) 300 mg 24 hr tablet Take 300 mg by mouth daily 3 Active ondansetron ODT (ZOFRAN-ODT) 4 mg disintegrating tablet Take 4 mg by mouth every 8 (eight) hours as needed 2 Active sertraline (ZOLOFT) 25 mg tablet TAKE 1 TABLET BY MOUTH EVERY DAY IN THE EVENING. 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 Gender Identity Not on file Sexual Orientation Not on file Obstetrics History Plan of Treatment Health Maintenance Due Date Last Done Comments Cervical Cancer Screening 1991 Depression Screening 1991 Hepatitis C Screening 1991 Varicella Vaccines (1 of 2 - 13+ 2-dose series) 2004 Hepatitis B Screening 2009 Regular Well Visit/Exam 18-64 2009 Covid-19 Vaccine (3 2023-2 5 season) 2024 02/02/2021, 01/12/2021 Influenza Vaccine (#1) 2025 , 04/02/2020, 04/08/2019 DTaP/Tdap/Td Vaccine (2 - Td or Tdap) 07/11/2026 07/11/2016 HPV Vaccines Aged Out No longer eligi ble based on patient's age to complete this topic Pneumococcal vaccine <65 Aged Out No longer eligible based on patient's age to complete this topic Insurance [facility] CHO[facility] PLUS [facility] [place] [address] Care Teams Gis Specialist Relationship Specialty Start Date End Date Angelita Byrnes PA PCP - General Physician Outpatient Services Director 08/15/22
--- OUTSIDE RECORDS SUMMARY | 2024-12-24 17:35 | XMS_ITS | Referral Summary ---
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
[2024-12-24 17:40] VITALS: BP 114/75; PULSE 71; RESP 18; TEMP 36.3; O2SAT 100
== END 2024-12-24 18:25 | disposition home or self-care (01) ==
PROVIDERS: Emergency Provider Nurse Practitioner Family; PCP Physician Assistant
DX: M25.562 Pain in left knee (principal)
CPT/HCPCS: 73562; 99203; G0463